=== PATIENT | male | born 1960 | race Caucasian/White ===

== ENCOUNTER 2018-06-26 01:46 | Emergency (ER) | payer OTHER ==
[2018-06-26] MEDS ORDERED: ONDANSETRON 4 MG/2 ML VIAL ONE (01:54)
[2018-06-26] MEDS ORDERED: KETOROLAC 15 MG/1 ML SDV ONE ×2 (01:54→02:03)
[2018-06-26] MEDS ORDERED: fentaNYL 100 MCG/2 ML INJ ONE (01:57)
[2018-06-26] MEDS ORDERED: KETOROLAC 15 MG/1 ML SDV IVP ONE (02:05)
[2018-06-26] MEDS ORDERED: NS 1,000 ML IV ONE (02:09)
[2018-06-26] MEDS ORDERED: ONDANSETRON 4 MG/2 ML VIAL IVP ONE ×2 (02:09→03:52)
[2018-06-26] MEDS ORDERED: fentaNYL 100 MCG/2 ML INJ IVP ONE ×3 (02:09→03:52)
[2018-06-26 02:20] LABS: PLATELET COUNT 190 10^3/uL (150-400)
--- NOTE | 2018-06-26 02:37 | EDPHY ---
H & P Stated Complaint: LEFT FLANK PAIN, HX OF KIDNEY STONES Time Seen by Provider: 06/26/18 01:53 HPI/ROS: Chief Complaint: Left flank pain HPI: 49-year-old male presenting with sudden onset left flank pain radiating to his groin this morning. Pain is a 9/10. He has had some nausea no vomiting. No fevers or chills. There are no aggravating or alleviating factors. He cannot find a position of comfort. Did have some hematuria couple days ago. Does not have a history of similar pain in the past. ROS: 10 systems were reviewed and were negative except those elements noted in the HPI. Social History: No smoking, no alcohol, no recreational drug use Family History: non-contributory Physical Exam: Gen: Awake, Alert, uncomfortable appearing HEENT: Nose: no rhinorrhea Eyes: PERRLA, EOMI Mouth: Moist mucosa Neck: Supple, no JVD Chest: nontender, lungs clear to auscultation Heart: S1, S2 normal, no murmur Abd: Soft, non-tender, no guarding Back: no CVA tenderness, no midline tenderness Ext: no edema, non-tender Skin: no rash Neuro: CN II-XII intact, Sensation grossly intact, Strength 5/5 in bilateral upper and lower extremities - Personal History Current Tetanus/Diphtheria Vaccine: Yes Current Tetanus Diphtheria and Acellular Pertussis (TDAP): Yes - Medical/Surgical History Hx Asthma: No Hx Chronic Respiratory Disease: No Hx Diabetes: No Hx Cardiac Disease: No Hx Renal Disease: No Hx Cirrhosis: No Hx Alcoholism: No Hx HIV/AIDS: No Hx Splenectomy or Spleen Trauma: No Other PMH: KNEE SURGERY - Social History Smoking Status: Never smoked Constitutional: Initial Vital Signs Temperature (C) 36.6 C 06/26/18 01:48 Heart Rate 55 L 06/26/18 01:48 Respiratory Rate 22 H 06/26/18 01:48 Blood Pressure 148/87 H 06/26/18 01:48 O2 Sat (%) 100 06/26/18 01:48 O2 Delivery Mode Room Air Allergies/Adverse Reactions: codeine Allergy (Verified 06/26/18 02:06) penicillin G Allergy (Verified 06/26/18 02:06) Home Medications: Medication Instructions Recorded Hydrocodone/Acetaminophen 1 - 2 each PO Q4-6PRN PRN #10 06/26/18 [Hydrocodon-Acetaminophen 5-325] tablet Tamsulosin HCl 0.4 mg PO DAILY #10 cap 06/26/18 Medical Decision Making - Diagnostics Imaging Results: Abdominal CT shows a left distal ureteral stone measuring 4 x 7 mm in the bladder. There is moderate left hydronephrosis, mild left hydroureter, surrounding inflammatory changes. There is also a large prostate gland. Study interpreted by Dr. Zainab Liao, direct Radiology. ED Course/Re-evaluation: Patient is improved after IV fentanyl and Toradol. Ultrasound shows a distal ureteral stone near the bladder. Plan will be to discharge on tamsulosin, analgesia and follow up with Urology. - Data Points Laboratory Results: Laboratory Results 06/26/18 01:55 06/26/18 01:55 06/26/18 06/26/18 06/26/18 02:40 02:01 01:55 WBC RBC Hgb POC Hgb 16.3 gm/dL gm/dL (13.7-17.5) Hct POC Hct 48 % % (40-51) MCV MCH MCHC RDW Plt Count MPV Neut % (Auto) Lymph % (Auto) [place] % (Auto) Eos % (Auto) Baso % (Auto) Nucleat RBC Rel Count Absolute Neuts (auto) Absolute Lymphs (auto) Absolute Monos (auto) Absolute Eos (auto) Absolute Basos (auto) Absolute Nucleated RBC Immature Gran % Immature Gran # POC Sodium 142 mEq/L mEq/L (135-145) Sodium 139 mEq/L mEq/L (135-145) POC Potassium 3.4 mEq/L mEq/L (3.3-5.0) Potassium 3.7 mEq/L mEq/L (3.5-5.2) POC Chloride 101 mEq/L mEq/L (97-110) Chloride 104 mEq/L mEq/L (97-110) Carbon Dioxide 25 mEq/l mEq/l (22-31) Anion Gap 10 mEq/L mEq/L (6-14) POC BUN 22 mg/dL mg/dL (7-23) BUN 24 mg/dL H mg/dL (7-23) Creatinine 1.1 mg/dL mg/dL (0.7-1.3) POC Creatinine 1.1 mg/dL mg/dL (0.7-1.3) Estimated GFR > 60 Glucose 129 mg/dL H mg/dL (70-100) POC Glucose 127 mg/dL H mg/dL (70-100) Calcium 9.7 mg/dL mg/dL (8.5-10.4) Urine Color YELLOW Urine Appearance HAZY Urine pH 7.0 (5.0-7.5) Ur Specific [place] 1.019 (1.002-1.030) Urine Protein NEGATIVE (NEGATIVE) Urine Ketones NEGATIVE (NEGATIVE) Urine Blood 2+ H (NEGATIVE) Urine Nitrate NEGATIVE (NEGATIVE) Urine Bilirubin NEGATIVE (NEGATIVE) Urine Urobilinogen NEGATIVE EU EU (0.2-1.0) Ur Leukocyte Esterase NEGATIVE (NEGATIVE) Urine RBC 50-182 /hpf H /hpf (0-3) Urine WBC 1-3 /hpf /hpf (0-3) Ur Epithelial Cells NONE SEEN /lpf /lpf (NONE-1+) Urine Mucus TRACE /lpf /lpf (NONE-1+) Urine Glucose NEGATIVE (NEGATIVE) 06/26/18 01:55 WBC 9.66 10^3/uL H 10^3/uL (3.80-9.50) RBC 4.71 10^6/uL 10^6/uL (4.40-6.38) Hgb 16.1 g/dL g/dL (13.7-17.5) POC Hgb Hct 46.1 % % (40.0-51.0) POC Hct MCV 97.9 fL fL (81.5-99.8) MCH 34.2 pg H pg (27.9-34.1) MCHC 34.9 g/dL g/dL (32.4-36.7) RDW 11.9 % % (11.5-15.2) Plt Count 190 10^3/uL 10^3/uL (150-400) MPV 9.1 fL fL (8.7-11.7) Neut % (Auto) 38.8 % L % (39.3-74.2) Lymph % (Auto) 49.3 % H % (15.0-45.0) [place] % (Auto) 9.8 % % (4.5-13.0) Eos % (Auto) 1.4 % % (0.6-7.6) Baso % (Auto) 0.5 % % (0.3-1.7) Nucleat RBC Rel Count 0.0 % % (0.0-0.2) Absolute Neuts (auto) 3.74 10^3/uL 10^3/uL (1.70-6.50) Absolute Lymphs (auto) 4.76 10^3/uL H 10^3/uL (1.00-3.00) Absolute Monos (auto) 0.95 10^3/uL H 10^3/uL (0.30-0.80) Absolute Eos (auto) 0.14 10^3/uL 10^3/uL (0.03-0.40) Absolute Basos (auto) 0.05 10^3/uL 10^3/uL (0.02-0.10) Absolute Nucleated RBC 0.00 10^3/uL 10^3/uL (0-0.01) Immature Gran % 0.2 % % (0.0-1.1) Immature Gran # 0.02 10^3/uL 10^3/uL (0.00-0.10) POC Sodium Sodium POC Potassium Potassium POC Chloride Chloride Carbon Dioxide Anion Gap POC BUN BUN Creatinine POC Creatinine Estimated GFR Glucose POC Glucose Calcium Urine Color Urine Appearance Urine pH Ur Specific [place] Urine Protein Urine Ketones Urine Blood Urine Nitrate Urine Bilirubin Urine Urobilinogen Ur Leukocyte Esterase Urine RBC Urine WBC Ur Epithelial Cells Urine Mucus Urine Glucose Medications Given: Discontinued Medications Fentanyl (Sublimaze) 50 mcg IVP EDNOW ONE Stop: 06/26/18 02:10 Last Admin: 06/26/18 02:11 Dose: 50 mcg Fentanyl (Sublimaze) 50 mcg IVP EDNOW ONE Stop: 06/26/18 02:31 Last Admin: 06/26/18 02:31 Dose: 50 mcg Sodium Chloride (Ns) 1,000 mls @ 0 mls/hr IV ONCE ONE PRN Reason: Wide Open Stop: 06/26/18 02:10 Last Admin: 06/26/18 02:11 Dose: 1,000 mls Ketorolac Tromethamine (Toradol) 15 mg IVP EDNOW ONE Stop: 06/26/18 02:06 Last Admin: 06/26/18 02:07 Dose: 15 mg Ondansetron HCl (Zofran) 4 mg IVP EDNOW ONE Stop: 06/26/18 02:10 Last Admin: 06/26/18 02:11 Dose: 4 mg Point of Care Test Results: Chemistry 06/26/18 02:01 POC Sodium 142 mEq/L mEq/L (135-145) POC Potassium 3.4 mEq/L mEq/L (3.3-5.0) POC Chloride 101 mEq/L mEq/L (97-110) POC BUN 22 mg/dL mg/dL (7-23) POC Creatinine 1.1 mg/dL mg/dL (0.7-1.3) POC Glucose 127 mg/dL H mg/dL (70-100) ISTAT H&H 06/26/18 02:01 POC Hgb 16.3 gm/dL gm/dL (13.7-17.5) POC Hct 48 % % (40-51) Departure - Departure Disposition: Home, Routine, Self-Care Clinical Impression: Kidney stone Condition: Good Instructions: Kidney Stones (ED) Additional Instructions: Take the tamsulosin daily to help facilitate passage of the stone. You may take ibuprofen 600 mg 3 times a day for pain. May take hydrocodone with acetaminophen for breakthrough pain. Follow up with Urology in 2-3 days for further evaluation. Return to the emergency department for increasing pain, fevers, uncontrolled vomiting, or any other concerns. Referrals: NONE *PRIMARY CARE P,. [Primary Care Provider] - As per Instructions Uday Godoy MD [Medical Doctor] - As per Instructions Prescriptions: Hydrocodone/Acetaminophen [Hydrocodon-Acetaminophen 5-325] 1 - 2 each PO Q4- 6PRN PRN #10 tablet PRN Reason: Pain, Severe Tamsulosin HCl 0.4 mg PO DAILY #10 cap
[2018-06-26] MEDS ORDERED: TAMSULOSIN HCL 0.4 MG CAP PO ONE (03:46)
[2018-06-26] MEDS ORDERED: HYDROCOD/APAP 5/325 PREPACK#6 BTL TAKEHOME ONE ×2 (04:19→04:21)
[2018-06-26] MEDS ORDERED: ONDANSETRON 4MG PREPACK#2 BTL TAKEHOME ONE ×2 (04:19→04:21)
[2018-06-26 04:39] VITALS: BP 119/78
== END 2018-06-26 04:38 | disposition home or self-care (01) ==
DX: R10.32 Left lower quadrant pain (principal); N20.1 Calculus of ureter; N40.0 Benign prostatic hyperplasia without lower urinary tract symptoms
CPT/HCPCS: 82435-PO; 82565-PO; 82947-PO; 84132-PO; 84295-PO; 84520-PO; 85014-ER; 96374; J1885; J2405; J3010

== ENCOUNTER 2018-07-03 17:52 | Emergency (ER) | payer OTHER ==
[2018-07-03] MEDS ORDERED: HYDROmorphONE/DILAUDID 2 MG/ML INJ IVP ONE (18:25)
[2018-07-03] MEDS ORDERED: ONDANSETRON 4 MG/2 ML VIAL IVP ONE (18:25)
[2018-07-03] MEDS ORDERED: NS 1,000 ML IV ONE (18:25)
--- NOTE | 2018-07-03 18:28 | EDPHY ---
H & P Stated Complaint: Left flank pain Time Seen by Provider: 07/03/18 18:18 HPI/ROS: CHIEF COMPLAINT: Left flank pain HISTORY OF PRESENT ILLNESS: The patient is a 57-year-old man who was seen here 1 week ago and diagnosed with a distal left ureteral stone 4 x 5 mm. He was placed on Flomax, ibuprofen and Vicodin. He states that his pain improved over the last several days. He saw the urologist COLEEN Alonso yesterday and they had discussed possibly doing a scope/procedure but elected to wait and let it pass spontaneously. Today however he states that his pain increased significantly. He comes to the ER requesting that urology remove it now. He is slightly nauseous but has not vomited. No fever. He has not taken any ibuprofen today. Severity: Severe Modifying factors: None REVIEW OF SYSTEMS: Constitutional: denies: chills, fever, recent illness, recent injury EENTM: denies: blurred vision, double vision, nose congestion Respiratory: denies: cough, shortness of breath Cardiac: denies: chest pain, irregular heart rate, lightheadedness, palpitations Gastrointestinal/Abdominal: denies: abdominal pain, diarrhea, nausea, vomiting, blood streaked stools Genitourinary: See HPI Musculoskeletal: denies: joint pain, muscle pain Skin: denies: lesions, rash, jaundice, bruising Neurological: denies: headache, numbness, paresthesia, tingling, dizziness, weakness Hematologic/Lymphatic: denies: blood clots, easy bleeding, easy bruising Immunologic/allergic: denies: HIV/AIDS, transplant 10 systems reviewed and negative except as noted EXAM: GENERAL: Moderate distress, HEAD: Atraumatic, normocephalic. EYES: Pupils equal round and reactive to light, extraocular movements intact, sclera anicteric, conjunctiva are normal. ENT: TMs normal, nares patent, oropharynx clear without exudates. Moist mucous membranes. NECK: Normal range of motion, supple without lymphadenopathy or JVD. LUNGS: Breath sounds clear to auscultation bilaterally and equal. No wheezes rales or rhonchi. HEART: Regular rate and rhythm without murmurs, rubs or gallops. ABDOMEN: Soft, nontender, normoactive bowel sounds. No guarding, no rebound. No masses appreciated. BACK: No CVA tenderness, no spinal tenderness, step-offs or deformities EXTREMITIES: Normal range of motion, no pitting or edema. No clubbing or cyanosis. NEUROLOGICAL: Cranial nerves II through XII grossly intact. Normal speech, normal gait. 5/5 strength, normal movement in all extremities, normal sensation , normal reflexes PSYCH: Normal mood, normal affect. SKIN: Warm, dry, normal turgor, no visible rashes or lesions. Source: Patient Exam Limitations: No limitations - Personal History Current Tetanus/Diphtheria Vaccine: Yes - Medical/Surgical History Hx Asthma: No Hx Chronic Respiratory Disease: No Hx Diabetes: No Hx Cardiac Disease: No Hx Renal Disease: No Hx Cirrhosis: No Hx Alcoholism: No Hx HIV/AIDS: No Hx Splenectomy or Spleen Trauma: No Other PMH: KNEE SURGERY - Family History Significant Family History: No pertinent family hx - Social History Smoking Status: Never smoked Alcohol Use: None Constitutional: Initial Vital Signs Heart Rate 60 07/03/18 18:15 Respiratory Rate 18 07/03/18 18:15 Blood Pressure 138/81 H 07/03/18 18:15 O2 Sat (%) 100 07/03/18 18:15 O2 Delivery Mode Room Air O2 (L/minute) 2 Allergies/Adverse Reactions: codeine Allergy (Verified 07/03/18 18:17) penicillin G Allergy (Verified 07/03/18 18:17) Home Medications: Medication Instructions Recorded Hydrocodone/Acetaminophen 1 - 2 each PO Q4-6PRN PRN #10 06/26/18 [Hydrocodon-Acetaminophen 5-325] tablet Tamsulosin HCl 0.4 mg PO DAILY #10 cap 06/26/18 Ketorolac Tromethamine 10 mg PO Q6H PRN #16 tab 07/03/18 Medical Decision Making ED Course/Re-evaluation: 7:00 p.m. the patient's kidney function is good. Will treat with Toradol. He states that his pain is down to 3 after Dilaudid. We discussed disposition. He would prefer to go home and has a follow-up appointment with the urologist tomorrow 10:00 a.m. And states that he will likely have the stone removed at that time. We will continue to observe and hydrate and treat as needed with pain and nausea medication. 8:20 p.m. the patient is feeling much better. His pain is now 0 after Toradol. He is eager to go home. He has a follow-up with Urology and 15 hr. The I will send him with take-home Percocet and Zofran. Differential Diagnosis: Partial list of the Differential diagnosis considered include but were not limited to; kidney stone, obstruction, and although unlikely based on the history and physical exam, I also considered infection, perforation. I discussed these differential diagnoses and the plan with the patient as well as the usual and expected course. The patient understands that the diagnosis is provisional and that in medicine we are not always correct and that further workup is often warranted. Usual and customary warnings were given. All of the patient's questions were answered. The patient was instructed to return to the emergency department should the symptoms at all worsen or return, otherwise to followup with the physician as we discussed. - Data Points Laboratory Results: Laboratory Results 07/03/18 18:30 07/03/18 18:30 07/03/18 07/03/18 18:30 18:30 WBC 8.69 10^3/uL 10^3/uL (3.80-9.50) RBC 4.81 10^6/uL 10^6/uL (4.40-6.38) Hgb 16.4 g/dL g/dL (13.7-17.5) Hct 46.1 % % (40.0-51.0) MCV 95.8 fL fL (81.5-99.8) MCH 34.1 pg pg (27.9-34.1) MCHC 35.6 g/dL g/dL (32.4-36.7) RDW 11.7 % % (11.5-15.2) Plt Count 173 10^3/uL 10^3/uL (150-400) MPV 8.7 fL fL (8.7-11.7) Neut % (Auto) 68.7 % % (39.3-74.2) Lymph % (Auto) 21.6 % % (15.0-45.0) [place] % (Auto) 8.2 % % (4.5-13.0) Eos % (Auto) 0.7 % % (0.6-7.6) Baso % (Auto) 0.5 % % (0.3-1.7) Nucleat RBC Rel Count 0.0 % % (0.0-0.2) Absolute Neuts (auto) 5.97 10^3/uL 10^3/uL (1.70-6.50) Absolute Lymphs (auto) 1.88 10^3/uL 10^3/uL (1.00-3.00) Absolute Monos (auto) 0.71 10^3/uL 10^3/uL (0.30-0.80) Absolute Eos (auto) 0.06 10^3/uL 10^3/uL (0.03-0.40) Absolute Basos (auto) 0.04 10^3/uL 10^3/uL (0.02-0.10) Absolute Nucleated RBC 0.00 10^3/uL 10^3/uL (0-0.01) Immature Gran % 0.3 % % (0.0-1.1) Immature Gran # 0.03 10^3/uL 10^3/uL (0.00-0.10) Sodium 134 mEq/L L mEq/L (135-145) Potassium 3.5 mEq/L mEq/L (3.5-5.2) Chloride 99 mEq/L mEq/L (97-110) Carbon Dioxide 25 mEq/l mEq/l (22-31) Anion Gap 10 mEq/L mEq/L (6-14) BUN 19 mg/dL mg/dL (7-23) Creatinine 1.1 mg/dL mg/dL (0.7-1.3) Estimated GFR > 60 Glucose 117 mg/dL H mg/dL (70-100) Calcium 9.5 mg/dL mg/dL (8.5-10.4) Medications Given: Discontinued Medications Hydromorphone HCl (Dilaudid) 1 mg IVP EDNOW ONE Stop: 07/03/18 18:26 Last Admin: 07/03/18 18:40 Dose: 1 mg Sodium Chloride (Ns) 1,000 mls @ 0 mls/hr IV EDNOW ONE; Wide Open PRN Reason: Protocol Stop: 07/03/18 18:26 Last Admin: 07/03/18 18:40 Dose: 1,000 mls Ketorolac Tromethamine (Toradol) 30 mg IVP EDNOW ONE Stop: 07/03/18 18:57 Last Admin: 07/03/18 19:01 Dose: 30 mg Ondansetron HCl (Zofran) 4 mg IVP EDNOW ONE Stop: 07/03/18 18:26 Last Admin: 07/03/18 18:40 Dose: 4 mg Ondansetron HCl (Zofran Odt 4 Mg Prepack#2) 1 btl TAKEHOME EDNOW ONE Stop: 07/03/18 20:23 Last Admin: 07/03/18 20:33 Dose: 1 btl Oxycodone/Acetaminophen (Percocet 5/325mg Prepack#4) 1 btl TAKEHOME EDNOW ONE Stop: 07/03/18 19:05 Last Admin: 07/03/18 20:33 Dose: 1 btl Departure - Departure Disposition: Home, Routine, Self-Care Clinical Impression: Kidney stone on left side Condition: Fair Instructions: Oxycodone/Acetaminophen (By mouth), Ondansetron (By mouth), Kidney Stones (ED) Referrals: TERRANCE DIAZ [Primary Care Provider] - As per Instructions Uday Godoy MD [Medical Doctor] - 1 day without fail Prescriptions: Ketorolac Tromethamine 10 mg PO Q6H PRN #16 tab PRN Reason: Pain/inflammation
[2018-07-03 18:43] LABS: PLATELET COUNT 173 10^3/uL (150-400)
[2018-07-03] MEDS ORDERED: KETOROLAC 30 MG/1 ML SDV IVP ONE (18:56)
[2018-07-03] MEDS ORDERED: OXYCODONE/APAP 5/325MG PREPACK#4 BTL TAKEHOME ONE (19:04)
[2018-07-03] MEDS ORDERED: ONDANSETRON 4MG PREPACK#2 BTL TAKEHOME ONE (20:22)
[2018-07-03 20:36] VITALS: BP 117/66
== END 2018-07-03 20:35 | disposition home or self-care (01) ==
DX: N20.1 Calculus of ureter (principal); E86.9 Volume depletion, unspecified; Z88.0 Allergy status to penicillin
CPT/HCPCS: 96374; J1170; J1885; J2405

== ENCOUNTER 2018-07-04 09:08 | Day surgery (SDC) | payer OTHER ==
[2018-07-04] MEDS ORDERED: ONDANSETRON 4 MG/2 ML VIAL ONE (15:50)
[2018-07-04] MEDS ORDERED: LR 1,000 ML IV ONE (15:56)
[2018-07-04] MEDS ORDERED: ONDANSETRON 4 MG/2 ML VIAL IVP ONE (16:15)
[2018-07-04] MEDS ORDERED: ceFAZolin 2 GM/DEXTROSE 100 ML IV ONE (16:32)
--- NOTE | 2018-07-04 16:35 | PDHPUP ---
History & Physical Update H&P update statement: This history and physical update is based on an assessment of the patient which was completed after admission or registration (within 24 hours), but prior to the surgery/procedure. H&P update: H&P reviewed & patient examined, no change in patient's condition since H&P completed
[2018-07-04] MEDS ORDERED: CEFAZOLIN 2 GM/DEXTROSE/100 ML BAG IV ONE (16:37)
--- NOTE | 2018-07-04 16:38 | PDGENHP ---
History & Physical Chief Complaint: left ureterolithiasis History of Present Illness: stone with pain and nausea, admitted for ureteroscopy and stone removal Pertinent Past, Social, Family History: non contributory Relevant Physical Exam: HEENT normal. heart rrr. lungs clear. abd soft. neuro Ox 3 Cardiorespiratory Assessment: normal
[2018-07-04] MEDS ORDERED: IOPAMIDOL (ISOVUE-M 300) 15 ML VIAL ONE (16:40)
[2018-07-04] MEDS ORDERED: LIDOCAINE 2% JELLY 20 ML (UROJECT) ONE (16:41)
[2018-07-04] MEDS ORDERED: MIDAZOLAM 2 MG/2 ML VIAL ONE (16:46)
[2018-07-04] MEDS ORDERED: PROPOFOL/EMULSION 500 MG/50 ML BOTTLE IV ONE (16:53)
--- NOTE | 2018-07-04 16:53 | PDANEPAE ---
ANE History of Present Illness left kidney stone ANE Past Medical History - Cardiovascular History Hx Hypertension: No Hx Arrhythmias: No Hx Chest Pain: No Hx Coronary Artery / Peripheral Vascular Disease: No Hx CHF / Valvular Disease: No Hx Palpitations: No - Pulmonary History Hx COPD: No Hx Asthma/Reactive Airway Disease: No Hx Recent Upper Respiratory Infection: No Hx Oxygen in Use at Home: No Hx Sleep Apnea: No Sleep Apnea Screening Result - Last Documented: Positive - Neurologic History Hx Cerebrovascular Accident: No Hx Seizures: No Hx Dementia: No - Endocrine History Hx Diabetes: No Hypothyroid: No Hyperthyroid: No Obesity: no - Renal History Hx Renal Disorders: Yes Renal History Comment: Left Kidney Stone 07/2018 - Liver History Hx Hepatic Disorders: No - Neurological & Psychiatric Hx Hx Neurological and Psychiatric Disorders: No - Cancer History Hx Cancer: No - Congenital Disorder History Hx Congenital Disorders: No - GI History GERD: no Hx Gastrointestinal Disorders: No - Chronic Pain History Chronic Pain: No - Surgical History Prior Surgeries: bilateral knee scopes, hemroidectomy ANE Review of Systems Review of systems is: negative Review of Systems: - Exercise capacity Exercise capacity: >=4 METS METS (RN): 6 METS ANE Patient History - Allergies Allergies/Adverse Reactions: codeine Allergy (Verified 07/04/18 15:26) unknown, childhood penicillin G Allergy (Verified 07/04/18 15:26) unknown reaction, childhood - Home Medications Home medications: home medication list seen and reviewed Home Medications: Zofran 07/04/18 [Last Taken 07/04/18] - NPO status NPO Status: no food or drink >8 hours NPO Since - Liquids (Date): 07/04/18 NPO Since - Liquids (Time): 08:30 NPO Since - Solids (Date): 07/03/18 NPO Since - Solids (Time): 22:00 - Anes Hx Anes Hx: no prior problems - Smoking Hx Smoking Status: Never smoked - Family Anes Hx Family Anes Hx: none Family Hx Anesthesia Complications: denies ANE Labs/Vital Signs - Vital Signs Vital Signs: reviewed preoperatively; see RN documention for details Blood Pressure: 123/78 Heart Rate: 53 Respiratory Rate: 16 O2 Sat (%): 90 Height: 182.88 cm Weight: 79.379 kg ANE Physical Exam - Airway Neck exam: FROM Mallampati Score: Class 1 Mouth exam: normal dental/mouth exam - Pulmonary Pulmonary: no respiratory distress - Cardiovascular Cardiovascular: regular rate and rhythym - ASA Status ASA Status: I, E ANE Anesthesia Plan Anesthesia Plan: GA w LMA
[2018-07-04] MEDS ORDERED: fentaNYL 100 MCG/2 ML INJ ONE (16:55)
[2018-07-04] MEDS ORDERED: DEXAMETHASONE 4 MG/ML VIAL ONE (17:12)
[2018-07-04] MEDS ORDERED: ePHEDrine SULFATE 25 MG/5 ML SYR ONE (17:18)
[2018-07-04] MEDS ORDERED: HYDROmorphONE/DILAUDID 2 MG/ML INJ IVP PRN (17:21)
[2018-07-04] MEDS ORDERED: oxyCODONE IR 5 MG TAB PO PRN (17:21)
[2018-07-04] MEDS ORDERED: METOCLOPRAMIDE 10 MG/2 ML VIAL IVP PRN (17:21)
[2018-07-04] MEDS ORDERED: PHENYLEPHRINE HCL 100 MCG/ML SYR IVP PRN (17:21)
[2018-07-04] MEDS ORDERED: MEPERIDINE 25 MG/0.5 ML AMP IVP PRN (17:21)
[2018-07-04] MEDS ORDERED: NALOXONE HCL 0.4 MG/ML INJ IVP PRN (17:21)
[2018-07-04] MEDS ORDERED: LABETALOL HCL 5 MG/ML 20 ML MDV IVP PRN (17:21)
[2018-07-04] MEDS ORDERED: ONDANSETRON 4 MG/2 ML VIAL IVP PRN (17:21)
[2018-07-04] MEDS ORDERED: ALBUTEROL 3 ML DEYVIAL IH PRN (17:21)
[2018-07-04] MEDS ORDERED: fentaNYL 100 MCG/2 ML INJ IVP PRN (17:21)
[2018-07-04] MEDS ORDERED: ACETAMINOPHEN 500 MG TAB PO PRN (17:21)
[2018-07-04] MEDS ORDERED: PROMETHAZINE HCL 25 MG/ML INJ IVP PRN (17:21)
[2018-07-04] MEDS ORDERED: LR 500 ML IV PRN (17:21)
[2018-07-04] MEDS ORDERED: KETOROLAC 30 MG/1 ML SDV ONE (17:42)
[2018-07-04] MEDS ORDERED: MIDAZOLAM 2 MG/2 ML VIAL IVP ONE (17:59)
--- NOTE | 2018-07-04 18:01 | POSTOPPROG ---
Post Op Note Date of Operation: 07/04/18 (dictated) Surgeon: Uday Godoy Anesthesia: LMA Pre-op Diagnosis: left stone Procedure: ureteroscopy, RUP, stent, laser, basket Findings: stone Inf/Abcess present in the surg proc area at time of surgery?: No EBL: Minimal Drains: Other (stent, sandhu) Specimen(s): stone fragment
--- NOTE | 2018-07-04 18:01 | POSTANESTH ---
Post Anesthetic Evaluation Cardiovascular Status: Normal, Stable Respiratory Status: Normal, Stable Level of Consciousness/Mental Status: Can Participate in Eval Pain Control: Adequate, Prn Tx Ordered Nausea/Vomiting Control: Adequate, Prn Tx Ordered Complications Possibly Related to Anesthesia: None Noted
[2018-07-04 18:43] VITALS: BP 115/62
--- NOTE | 2018-07-05 04:59 | GOP ---
[f rep st] OPERATIVE REPORT DATE OF OPERATION: 07/04/2018 SURGEON: Uday Godoy MD PREOPERATIVE DIAGNOSIS: left ureterolithiasis POSTOPERATIVE DIAGNOSIS: left ureterolithiasis PROCEDURE PERFORMED: left ureteroscopy, stone removal, stent , fluoroscopy FINDINGS: stone DESCRIPTION OF PROCEDURE: After undergoing general anesthesia, being prepped and draped in a normal sterile fashion in the dorsal lithotomy position, marked , and appropriate time-out for a left ureteroscopy, he underwent cystoscopy. Urethra normal. Prostate normal. Bladder had no tumor, stones, foreign bodies , or diverticula. Left ureteral orifice was cannulated and a retrograde revealed the distal ureteral stone with edema and impaction. I was able to negotiate a guidewire up beyond the stone and then I used the intraluminal part of the ureteral access sheath to dilate the intramural ureter. A semi-rigid scope put up, identified the stone, and holmium laser lithotripsy was utilized to fragment the stone. I used a 200 micron fiber 10 pulse per second DBL mode of 8 bean. A total of 96 joules utilized for laser lithotripsy and then the basket was used to extract the stone fragments. I used a 4.7 multi-length stent that curled in the renal pelvis, curled in the bladder, and cystoscopy was performed. Uro-Jet placed in the urethra, Turcios catheter placed, and he will be discharged home without the catheter. He will see me in the office in 1 week for stent removal. He did have a rectal exam at the time that showed a normal anus and rectal vault. Prostate was normal. Seminal vesicles palpable and normal. Penis, scrotal exam, and testicles all normal. He will be discharged home. /[id number]/MODL MTDD
== END 2018-07-04 19:56 | disposition home or self-care (01) ==
LOC: FIMAGING 09:08 → FSGY 09:08 → EDSTATUS 12:01 → FIMAGING 19:56
PROVIDERS: ATTEND Physician Assistant Medical
PROC: 0T778DZ Dilation of Left Ureter with Intraluminal Device, Via Natural or Artificial Opening Endoscopic (ICD-10-PCS; 2018-07-04)
PROC: 0TF78ZZ Fragmentation in Left Ureter, Via Natural or Artificial Opening Endoscopic (ICD-10-PCS; principal; 2018-07-04 16:30)
DX: N20.1 Calculus of ureter (principal)
CPT/HCPCS: 82365-90; C1758; C1769; C1894; C2625; J0690; J1100; J1885; J2250; J2405; J2704; J3010; Q9967